=== PATIENT | male | born 1935 | race Caucasian/White ===

== ENCOUNTER → 2021-02-28 10:18 | Outpatient (REF) | payer BC, SELFPAY | LOC: ANHLAB 10:18 | PROVIDERS: Visit Provider Nurse Practitioner | DX: C44.329 Squamous cell carcinoma of skin of other parts of face (principal) | CPT/HCPCS: 88305; 88331 ==

== ENCOUNTER → 2021-11-14 07:10 | Outpatient (REF) | payer BC, SELFPAY | LOC: ANHLAB 07:10 | PROVIDERS: Visit Provider Surgery Plastic and Reconstructive Surgery | DX: C44.311 Basal cell carcinoma of skin of nose (principal); C44.329 Squamous cell carcinoma of skin of other parts of face | CPT/HCPCS: 88305; 88331 ==